=== PATIENT | male | born 1985 | race Caucasian/White ===

== ENCOUNTER 2022-01-09 07:20 | Emergency (ER) | payer MEDICAID ==
[~2022-01-09] VITALS: Ht 167.6 cm; Wt 100.0 kg
[2022-01-09 09:05] VITALS: BP 139/98
[2022-01-09] MEDS ORDERED: NITROGLYCERIN 0.4MG TABLET SL SL PRN (09:30)
[2022-01-09] MEDS ORDERED: ASPIRIN 81MG TABLET PO ONE (09:30)
[2022-01-09 11:27] LABS: BASOPHILS % 0.8 % (0.0-2.0); EOSINOPHILS % 1.2 % (0.0-5.0); HEMATOCRIT. 49.4 % (42.0-52.0); LYMPHOCYTES % 28.3 % (20.0-50.0); MEAN CORPUSCULAR HEMOGLOBIN 29.4 pg (28.0-32.0); MEAN CORPUSCULAR VOLUME 85.5 fL (80.0-94.0); MEAN PLATELET VOLUME 8.4 fl (7.4-10.4); MONOCYTES % 5.7 % (2.0-8.0); PLATELET 224 x1000/uL (130-400); RED BLOOD CELL COUNT 5.78 mill/uL (4.7-6.1); RED CELL DISTRIBUTION WIDTH 13.9 % (11.6-14.6)
[2022-01-09 11:43] LABS: CHLORIDE 107 mEq/L (98-107)
== END 2022-01-09 15:23 | disposition left against medical advice (07) ==
LOC: ER 07:20
DX: R07.89 Other chest pain (principal)
CPT/HCPCS: 36415; 71045; 80053; 83605; 83690; 83880; 84484; 85025; 93005; 99285; Z7610